=== PATIENT | male | born 1950 | race Caucasian/White ===

== ENCOUNTER 2023-01-19 06:51 | Observation (INO) ==
--- NOTE | 2023-01-08 13:10 | Anesthesiology Consultation ---
Date of Service January 08, 2023 Assessment & Plan (1) Encounter for pre-operative examination: - COVID screening: Per assessment on 01/08: No known COVID-19 positive contacts or current COVID-19 related symptoms. Travel screen negative. Patient vaccinated. At surgeon discretion if preop Covid testing being done. - Cardiology visit (07/23/22): "Dual-chamber pacemaker: I performed a full evaluation of the pacemaker today, which included interrogation of stored data and battery longevity as well as evaluation of sensing and pacing characteristics. Battery longevity remains acceptable, pacing and sensing thresholds are stable and there have been no significant arrhythmias since last evaluation.. Coronary disease: He has documented coronary disease but he does not have anginal symptoms. He should remain on atorvastatin.. Statin therapy: I am going to draw liver tests and a lipid profile as it has been sometime since he had 1.. Valvular heart disease: He has much regurgitation and aortic insufficiency. We will need to follow this by echocardiography. I will schedule him for an echocardiogram prior to his next visit in 1 year.. Hypertension: His blood pressure is excellent today. He is followed remotely therefore I will have him come back in for follow-up in 1 year." Chart Review Chart Review: Acceptable Risk for Surgery (pending evaluation AM DOS) and Patient NOT seen in Pre Admission Testing History Surgery Operation Date: 01/19/23 12:00 Proposed Procedures p TURP (Transurethral Resection of the Prostate) - Jose Elias Scott MD Height/Weight Height: 5 ft 10 in Weight: 90.718 kg Allergies Allergy/AdvReac Type Severity Reaction Status Date / Time cayenne pepper fruits Allergy Severe Throat Verified 01/08/23 13:03 swelling Iodinated Contrast Media Allergy Severe Throat Verified 01/08/23 13:03 swelling erickson Allergy Severe Throat Verified 01/08/23 13:03 swelling animal dander Allergy Intermediate Asthma Verified 01/08/23 13:03 flare lisinopril AdvReac Mild Cough Verified 01/08/23 11:24 Medications Home Medications Medication Instructions Recorded Confirmed Last Taken trospium 20 mg tablet 20 mg PO BID #180 tabs 05/14/22 01/08/23 Unknown albuterol sulfate 90 mcg/actuation 2 puff inhalation QID PRN 07/02/22 01/08/23 Unknown aerosol inhaler shortness of breath or wheezing cholecalciferol (vitamin D3) 50 50 mcg PO HS 07/02/22 01/08/23 Unknown mcg (2,000 unit) capsule dutasteride 0.5 mg capsule 0.5 mg PO QAM 07/02/22 01/08/23 Unknown fluticasone propionate 50 1 spray intranasal QAM 07/02/22 01/08/23 Unknown mcg/actuation nasal spray,suspension levothyroxine 125 mcg tablet 125 mcg PO QAM 07/02/22 01/08/23 Unknown sodium chloride 0.65 % nasal spray 2 spray intranasal QID PRN Nasal 07/02/22 01/08/23 Unknown aerosol (Saline Nasal Mist) Congestion vit C 250 mg-vit E 90 mg-zinc 40 2 tab PO QAM 07/02/22 01/08/23 Unknown mg-copper 1 [id number] capsule (PreserVision AREDS-2) budesonide 180 mcg/actuation 2 inh inhalation BID 10/16/22 01/08/23 Unknown breath activated powder inhaler atorvastatin 20 mg tablet 20 mg PO HS 01/08/23 01/08/23 Unknown calcium carbonate 600 mg calcium 600 mg PO HS 01/08/23 01/08/23 Unknown (1,500 mg) tablet (Calcium) finasteride 5 mg tablet 5 mg PO HS 01/08/23 01/08/23 Unknown metoprolol succinate 25 mg 25 mg PO QAM 01/08/23 01/08/23 Unknown tablet,extended release 24 hr tamsulosin 0.4 mg capsule 0.4 mg PO QAM 01/08/23 01/08/23 Unknown Past Medical History Medical History Asthma Basal cell carcinoma of face BPH with obstruction/lower urinary tract symptoms CAD (coronary artery disease) Glaucoma History of COVID-19 09/2021--mild symptoms > resolved History of renal stone Hypertension Hypothyroidism Osteoarthritis Osteopenia Pacemaker [employer], implanted 2013 Past Family History Family History Mother Cardiac disorder Hypertension Father Cardiac disorder Nephrolithiasis Daughter Neuroblastoma Other No family history of adverse response to anesthesia Past Surgical History Surgical History History of bilateral cataract extraction History of colonoscopy History of Mohs micrographic surgery for skin cancer History of permanent cardiac pacemaker placement 2013 History of prostate biopsy History of surgical removal of pilonidal cyst History of tonsillectomy History of tooth extraction partial upper denture S/P thyroid biopsy Social History Smoking Status: Never smoker Do You Dip or Chew Tobacco: No Hx Alcohol Use: Yes alcohol intake frequency: a few times a month Hx Substance Use: No substance use type: does not use Lab Results Anesthesia Preop Results Results Anesthesia Widget: WBC 8.55 K/ul (4.8-10.8) 01/04/23 Hgb 14.2 g/dl (14.0-18.0) 01/04/23 Hct 41.8 % (42.0-52.0) L 01/04/23 Plt 177 K/uL (130-400) 01/04/23 Na 142 mmol/L (136-145) 01/04/23 K 3.7 mmol/L (3.5-5.1) 01/04/23 Cl 109 mmol/L (98-107) H 01/04/23 CO2 27 mmol/L (21-32) 01/04/23 BUN 18 mg/dl (6-23) 01/04/23 Creat 1.20 mg/dl (0.6-1.4) 01/04/23 Glucose Level 76 mg/dl (70-99(Fasting)) 01/04/23 Testing Electrocardiogram Date: 07/23/22 Sinus rhythm with occasional PVCs at 74 bpm. LAD. Chest X-Ray Date: 01/04/23 FINDINGS: Cardiomediastinal and hilar silhouettes are within normal limits. Left subclavian pacer. No pneumothorax, pleural effusion, airspace consolidation or pulmonary edema. Bones appear grossly intact. IMPRESSION: No acute process. Echocardiogram Date: 11/08/20 EF 50-55%. Normal contractility of the wall segments. MV thickening with mitral annular calcification. Mild to moderate MR. Mild to moderate AR. Mild TR. Mild CO. Pacer leads in right atrium and ventricle. Other Testing Pacer check (07/23/22) Mode AAIR <=> DDDR. Battery longevity 2.5 years. Total PARTNER MANAGEMENT CONSULTANT 0.1%. -VS 80.1%. -PARTNER MANAGEMENT CONSULTANT <0.1%. AP-VS 19.8%. AP-PARTNER MANAGEMENT CONSULTANT <0.1%.
[~2023-01-19 06:51] MED LIST: CIPROFLOXACIN / D5W 400 MG/200 ML BAG IV SCH; LACTATED RINGER'S 1,000 ML IV SCH
--- NOTE | 2023-01-19 07:28 | History & Physical Bridge Note ---
Date of Service January 19, 2023 History & Physical Bridge Note I have examined the patient, reviewed the History & Physical and in the interval since the performance of the History & Physical I have noted the following changes of clinical significance: no changes noted
[2023-01-19] MEDS ORDERED: PROPOFOL IV EMULSION 10 MG/ML 20 ML VIAL IV ONE (08:07)
[2023-01-19] MEDS ORDERED: MIDAZOLAM HCL 1 MG/ML 2ML VIAL ONE (08:07)
[2023-01-19] MEDS ORDERED: fentaNYL citrate PF 100 MCG/2 ML VIAL ONE (08:07)
[2023-01-19] MEDS ORDERED: ONDANSETRON INJ 2 MG/ML 2 ML VIAL ONE (08:07)
[2023-01-19] MEDS ORDERED: DEXAMETHASONE SOD INJ 4 MG/ML VIAL ONE (08:07)
[2023-01-19] MEDS ORDERED: fentaNYL citrate PF 100 MCG/2 ML VIAL IV PRN (08:17)
[2023-01-19] MEDS ORDERED: ONDANSETRON INJ 2 MG/ML 2 ML VIAL IV PRN (08:17)
[2023-01-19] MEDS ORDERED: ATROPINE SULFATE 0.1 MG/ML 10ML SYR IV PRN (08:17)
[2023-01-19] MEDS ORDERED: HYDROmorphone INJ 1 MG/ML SYRINGE IV PRN (08:17)
[2023-01-19] MEDS ORDERED: ePHEDrine sulfate 50 MG/ML AMP IV PRN (08:17)
[2023-01-19] MEDS ORDERED: LIDOCAINE 2% MPF LOCAL 5 ML VIAL ONE (08:28)
[2023-01-19] MEDS ORDERED: PHENYLEPHRINE HCL 10 MG/ML VIAL ONE (09:09)
--- NOTE | 2023-01-19 09:46 | Operative Report ---
PG Post Operative Report Pre & Post Diagnosis Operation Date: 01/19/23 08:20 Pre-Op Diagnosis: Benign Prostatic Hyperplasia with Obstruction/Lower Urinary Tract Symptoms Post-Op Diagnosis: Benign Prostatic Hyperplasia with Obstruction/Lower Urinary Tract Symptoms I identified the patient and participated in the time-out.: Yes Procedure Operation Date: 01/19/23 08:20 Actual Procedures p Transurethral Resection of the Prostate(Not Applicable) - Jose Elias Scott MD Surgeon Jose Elias Scott MD Caption Writer none Estimated Blood Loss 5 Findings Consistent with Post-Op Diagnosis Specimens Prostate chips Description of Procedure The patient was identified in the preoperative holding area, appropriate informed consents were reviewed and completed and the patient was transferred to the operative suite. Upon arrival, appropriate antibiotics and anesthesia were administered and the patient was placed in dorsal lithotomy position and prepped and draped in sterile fashion. Given his past 27 Colombian resectoscope with 33 months visual after repair inspection revealed a healthy-appearing urethra. And a moderately tight meatus was able to gently dilate this for passage of the scope. There were no strictures the remainder of the urethra, his prostate is moderately enlarged with substantial lateral lobe hypertrophy but most importantly has substantial intravesical median lobe. His bladder is healthy with moderate trabeculation. Ureteral orifices were identified in a safe distance from the bladder neck. Begin the case I used a loop electrode and incised the bladder neck at 5 and 7:00 and resected the intravesical median lobe. After flattening the posterior aspect of the bladder neck proceeded to resect the left lateral lobe followed by the right lateral lobe. I ultimately resected apical tissue as well for smoothing the entire prostate utilizing a button electrode. All chips were evacuated out of the bladder. Hemostasis was meticulously obtained and the case was concluded. He was reversed of anesthesia and taken the recovery room in stable condition after placement of a 22 [place]ian [place] catheter. I attest to the content of the Intraoperative Record and any orders documented therein. Any exceptions are noted below.
--- NOTE | 2023-01-19 10:51 | Anesthesiology Progress Note ---
Date of Service January 19, 2023 Anesthesia Post Procedure Vital Signs Vital Signs: Temp Pulse Pulse Resp BP Pulse Ox O2 Del Method 01/19/23 10:25 36.8 C 64 16 123/80 96 Nasal Cannula 01/19/23 10:15 72 18 127/81 95 Nasal Cannula 01/19/23 10:05 75 18 121/86 95 Oxymask 01/19/23 09:55 36.9 C 80 15 136/87 93 Oxymask 01/19/23 09:45 36.9 C 72 16 110/68 93 Oxymask 01/19/23 07:34 36.9 C 78 18 155/90 H 96 Room Air O2 Flow Rate 01/19/23 10:25 4 01/19/23 10:15 4 01/19/23 10:05 8 01/19/23 09:55 8 01/19/23 09:45 8 01/19/23 07:34 Pain Intensity Bilateral Scrotal: Pain Intensity: 0 Transfer of Care Handoff Completed per policy Notes Mental Status: alert / awake / arousable and participated in evaluation Patient Amnestic to Procedure: Yes Nausea / Vomiting: adequately controlled Pain: adequately controlled Airway Patency, RR, SpO2: stable & adequate BP & HR: stable & adequate Hydration State: stable & adequate Anesthetic Complications: no major complications apparent and Pt Satisfied with anesthetic care
[2023-01-19] MEDS ORDERED: ACETAMINOPHEN 325 MG TAB PO PRN (10:54)
[2023-01-19] MEDS ORDERED: ALBUTEROL HFA 8 GM INHALER INH PRN (10:54)
[2023-01-19] MEDS: SODIUM CHLORIDE 0.9% 1000ML 1,000 ML IV SCH ×2 (11:58→23:58)
[2023-01-19] MEDS: FLUTICASONE FUROATE 100MCG 14 PUFFS/INHALER INH SCH (12:44)
[2023-01-19] MEDS ORDERED: LEVOTHYROXINE SODIUM 125 MCG TABLET PO ONE (14:01)
[2023-01-19] MEDS ORDERED: METOPROLOL SUCC 25MG EXT REL TAB PO ONE (14:02)
[2023-01-19] MEDS: CIPROFLOXACIN / D5W 400 MG/200 ML BAG IV SCH (20:20)
[2023-01-19] MEDS ORDERED: CALCIUM CARBONATE 1250MG TAB PO SCH (21:00)
[2023-01-19] MEDS ORDERED: CHOLECALCIFEROL 1,000 UNITS 25 MCG TAB PO SCH (21:00)
[2023-01-19] MEDS ORDERED: ATORVASTATIN 20 MG TAB PO SCH (21:00)
[2023-01-20] MEDS ORDERED: LEVOTHYROXINE SODIUM 125 MCG TABLET PO SCH (06:30)
[2023-01-20 06:42] LABS: Hemoglobin 13.8 g/dl (14.0-18.0); Mean Corpuscular Hemoglobin 32.6 pg (25.0-34.0); Mean Corpuscular Hgb Conc 35.4 g/dL (32.0-36.0); Mean Corpuscular Volume 92.2 fL (80.0-100.0); Mean Platelet Volume 10.7 fL (9.4-12.4); Platelet Count 192 K/uL (130-400); RDW Coefficient of Variation 12.9 % (11.5-14.5); RDW Standard Deviation 43.4 fL (36.4-46.3); Red Blood Count 4.23 M/uL (4.70-6.10); White Blood Count 16.43 K/ul (4.8-10.8)
[2023-01-20 06:57] LABS: BUN Creatinine Ratio 19.2 (10-20); Calcium 8.9 mg/dl (8.6-10.3); Creatinine Clr Calc Pharmacy 64.4 ml/min; Est GFR (African American) 70.1 ml/min; Est GFR (Non-African American) 60.5 ml/min; Potassium 4.2 mmol/L (3.5-5.1)
[2023-01-20] MEDS: CIPROFLOXACIN / D5W 400 MG/200 ML BAG IV SCH (07:45)
[2023-01-20] MEDS: FLUTICASONE FUROATE 100MCG 14 PUFFS/INHALER INH SCH (07:46)
--- NOTE | 2023-01-20 08:27 | Urology Progress Note ---
Date of Service January 20, 2023 Assessment & Plan (1) BPH with obstruction/lower urinary tract symptoms: Plan: Voiding trial this morning Discharge home Admission and Anticipated Discharge Date Admission Date: January 19, 2023 Subjective No issues overnight Urine clear Anxious to go home Physical Exam Physical Exam: Urine clear -abdomen soft Results & Data Vital Signs (Past 12 Hours) Vital Signs Temp Pulse Resp BP Pulse Ox O2 Del Method 01/20/23 07:28 36.8 C 69 16 124/76 94 Room Air 01/20/23 03:00 36.8 C 72 18 130/77 95 Room Air 01/19/23 23:00 36.9 C 58 L 18 113/68 94 Room Air PG Care Time/CCT Total # of Minutes Spent Total Time Spent with Patient: Total time spent is greater than 50% in coordination of care (as documented) at patient's floor/unit and/or counseling patient: Coding Level of Care Code None Diagnoses BPH with obstruction/lower urinary tract symptoms N40.1; N13.8
[2023-01-20] MEDS ORDERED: METOPROLOL SUCC 25MG EXT REL TAB PO SCH (09:00)
--- NOTE | 2023-01-20 17:03 | Discharge Summary ---
Date of Service January 20, 2023 Admission HPI Per Admitting Provider 72-year-old male with chronic voiding dysfunction and BPH presents for transurethral resection of the prostate Admission Exam Per Admitting Provider Constitutional well developed and well nourished Neck neck nontender Respiratory normal respiratory effort; no respiratory distress and does not use accessory muscles Cardiovascular Rate/Rhythm: regular rate (paced) Vessels: radial pulses present Extremities: no edema Gastrointestinal (Abdomen) Inspection/Auscultation: abdomen normal to inspection Percussion/Palpation: abdomen soft; abdomen nontender and no guarding Musculoskeletal Head/Neck/Chest: normocephalic and head atraumatic Extremities: extremities normal to inspection Skin no rashes and no lesions Trauma: no evidence of skin trauma Neurologic awake; not obtunded Speech / Cognition: normal speech Motor/Sensory: no tremor Psychiatric Orientation: alert and oriented x 3 Genitourinary no CVA tenderness Lymphatic no lymphadenopathy Principal Diagnosis BPH with urinary obstruction and LUTS Discharge Exam Constitutional no acute distress Respiratory no respiratory distress and no labored breathing Neurologic moves all extremities and awake Psychiatric Orientation: alert, oriented x 3 and cooperative Genitourinary Urine is light pink Discharge Data Allergies Allergy/AdvReac Type Severity Reaction Status Date / Time cayenne pepper fruits Allergy Severe Throat Verified 01/19/23 07:26 swelling Iodinated Contrast Media Allergy Severe Throat Verified 01/19/23 07:26 swelling erickson Allergy Severe Throat Verified 01/19/23 07:26 swelling animal dander Allergy Intermediate Asthma Verified 01/19/23 07:26 flare lisinopril AdvReac Mild Cough Verified 01/19/23 07:26 Procedures Performed Operation Date: 01/19/23 08:20 Actual Procedures p Transurethral Resection of the Prostate(Not Applicable) - Jose Elias Scott MD Hospital Course (1) BPH with obstruction/lower urinary tract symptoms: Plan 72-year-old male with BPH with urinary obstruction and LUTS admitted status post transurethral resection of the prostate. Patient tolerated procedure well, no acute issues postoperatively. Remained afebrile and hemodynamically stable. Labs appropriate. He passed a voiding trial on postop day #1. No reported pain. Tolerated diet. Ambulated without issue. Patient was subsequently discharged home on postop day #1. He was in stable condition at time of discharge. Discharge instructions were reviewed, all questions were answered. Total Time Total Time Spent Total Time Spent (In Minutes): 15 Discharge Plan Discharge Items Patient Disposition: Home - Self-Care Reason For Visit: Benign Prostatic Hyperplasia with Obstruction/Lowe Discharge Diagnosis: BPH with urinary obstruction and lower urinary tract symptoms Condition on Discharge: Good Activity: Per Instructions section Non-emergency contact: Surgeon and Urologist Call non-emergency contact if: you have any medication questions, your pain is not controlled, your pain is worsening and you have a fever Follow-up/Referrals: Leonel Torres MD [Physician] - 05/18/23 2:40 pm Lit Scales [Primary Care Provider] - Diet: Regular Addtl Attending Provider Instructions: Please take all medications as prescribed and keep all follow-ups as scheduled. Please call our office at [phone] with any questions, concerns or need to reschedule appointments for any reason. We are happy to assist you. Tips for your recovery at home: Dont be alarmed by brownish or reddish blood or clots in your urine. This is a result of the procedure. This may occur off and on for weeks to months after the procedure but should continue to improve. Drink plenty of fluids during the day (enough to keep your urine very light colored). This will help keep a healthy flow of urine. Do not lift >25 lbs until your followup Avoid constipation. Please use a stool softener (Colace) for the first two weeks after your procedure When to call [facility] at [phone]: Your urine contains heavy blood clots or you are unable to urinate You are constantly leaking urine Fever of 101F or higher, chills, nausea, or vomiting Your pain is not relieved with medication Pending Studies at Discharge: Yes (pathology) Stand-Alone Forms: [facility] [place], Smoking Cessation Medications and DC Order Prescriptions: Continued budesonide 180 mcg/actuation aerosol powdr breath activated 2 inh inhalation BID levothyroxine 125 mcg tablet 125 mcg PO QAM albuterol sulfate 90 mcg/actuation HFA aerosol inhaler 2 puff inhalation QID PRN (Reason: shortness of breath or wheezing) cholecalciferol (vitamin D3) 50 mcg (2,000 unit) capsule 50 mcg PO HS fluticasone propionate 50 mcg/actuation spray,suspension 1 spray intranasal QAM Rx Instructions: administer into each nostril Saline Nasal Mist 0.65 % aerosol,spray 2 spray intranasal QID PRN (Reason: Nasal Congestion) PreserVision AREDS-2 250-90-40-1 mg capsule 2 tab PO QAM atorvastatin 20 mg tablet 20 mg PO HS metoprolol succinate 25 mg tablet extended release 24 hr 25 mg PO QAM calcium carbonate [Calcium 600] 600 mg calcium (1,500 mg) Tablet 600 mg PO HS Discontinued trospium 20 mg tablet 20 mg PO BID Qty: 180 3RF Rx Instructions: administer on an empty stomach dutasteride 0.5 mg capsule 0.5 mg PO QAM tamsulosin 0.4 mg capsule 0.4 mg PO QAM finasteride [Proscar] 5 mg tablet 5 mg PO HS Discharge Orders: Discharge Order (Routine); Ordered 01/20/23 Ordered By: Rhoda Lewis Admission Data Admit Date/Time: 01/19/23 09:44 Attending Provider: Jose Elias Scott Admit Provider: Jose Elias Scott Primary Care Provider: Lit Scales Other Interventions: Discharge Summary Assessment (RN) Last Done: 01/20/23 10:21 Coding Level of Care Code 14485 IN/OBS DISCH 30 MIN/LESS Diagnoses BPH with obstruction/lower urinary tract symptoms N40.1; N13.8
== END 2023-01-20 11:35 | disposition home or self-care (01) ==
LOC: 3W 06:51 → ASU 06:51

== ENCOUNTER 2025-03-24 13:23 | Inpatient (IN) ==
[2025-03-24 14:28] LABS: Hematocrit (blood only) 41.5 % (42.0-52.0); Hemoglobin 14.5 g/dl (14.0-18.0); Immature Granulocytes # (auto) 0.04 K/uL (0.01-0.20); Immature Granulocytes % (auto) 0.4 %; Mean Corpuscular Hemoglobin 33.1 pg (25.0-34.0); Mean Corpuscular Volume 94.7 fL (80.0-100.0); Platelet Count 192 K/uL (130-400); RDW Standard Deviation 43.7 fL (36.4-46.3); Red Blood Count 4.38 M/uL (4.70-6.10); White Blood Count 8.97 K/ul (4.8-10.8)
[2025-03-24 14:46] LABS: Alanine Aminotransferase 18.0 U/L (7-52); Albumin Globulin Ratio 1.3 (0.9-2); Alkaline Phosphatase 63.0 U/L (34-104); Anion Gap 6.0 (3-11); Bilirubin,Total 0.5 mg/dl (0.2-1.0); Blood Urea Nitrogen 22.0 mg/dl (6-23); Calcium 8.9 mg/dl (8.6-10.3); Carbon Dioxide 26.0 mmol/L (21-32); Chloride 109.0 mmol/L (98-107); Creatinine Clr Calc Pharmacy 60.1 ml/min; Globulin 3.1 gm/dl (2.5-4.0); Glucose 102.0 mg/dl (70-99(Fasting)); Potassium 4.0 mmol/L (3.5-5.1); Sodium 141.0 mmol/L (136-145); Total Protein 7.0 gm/dl (6.0-8.3)
[2025-03-24 14:59] LABS: INR 1.0 (0.9-1.1); Partial Thromboplastin Time 26 Seconds (21-31); Prothrombin Time 10.6 Seconds (9.0-12.0)
--- NOTE | 2025-03-24 15:08 | XRay Report ---
Clinical History: Chest pain Technique: A frontal view of the chest was obtained Comparison is made to the prior examination dated 01/04/2023 Findings: There are no confluent pulmonary infiltrates. The heart size is within normal limits. No pleural effusion or pneumothorax is seen. There is mild bilateral lung base atelectasis No fracture is noted. There is a left chest wall pacemaker device Impression: Mild bilateral lung base atelectasis Electronically signed by Tad Kate 03-24-2025 3:08 PM
--- NOTE | 2025-03-24 16:01 | Emergency Department Note ---
Impression & Plan Near syncope, Lightheadedness ED Provider Note HISTORY OF PRESENT ILLNESS: Patient is a 75-year-old male presenting with lightheadedness and dizziness. Patient reports that for the last week he has been having recurrent episodes of feeling very lightheaded and dizzy like he is going to pass out. He denies any significant chest pain. He reports feeling short of breath. He denies ever actually blacking out, but states he has had recurrent episodes in which he feels like he is going to pass out and is concerned his pacemaker might not be working. He had a pacemaker placed in December 2013 after having episodes of syncope. Patient denies any abdominal pain, nausea or vomiting. Denies any recent changes in medications. Denies any fevers. He reports he had another episode today in which she got very lightheaded and was stumbling around and he thought he was going to pass out, prompting his family to bring him to the ER. Patient reports that he has been having more frequent episodes of the lightheadedness and dizziness that caused him to lose his balance over the last 2 weeks. Patient denies any specific triggers for his episodes of dizziness and lightheadedness. He reports that it can occur when he is changing position, but can also occur suddenly when he is up and already walking. ROS: as above PHYSICAL EXAM: Constitutional: Patient appears in no acute distress. HENT: Head: Normocephalic and atraumatic. Eyes: EOMI, PERRL Mouth/Throat: Mucous membranes moist. Neck: Trachea midline. Neck supple. Cardiovascular: Paced rhythm. No murmurs, rubs or gallops. Intact distal pulses. Pulmonary/Chest: No respiratory distress. Breath sounds clear and equal bilaterally. No wheezes or rales. Abdominal: Abdomen soft, no tenderness, rebound or guarding. Musculoskeletal: No edema, tenderness or deformity noted. Skin: Warm and dry. No rash, erythema, pallor or cyanosis Psychiatric: Appropriate mood and affect for situation. Neurological: Alert and keenly responsive. CN II-XII grossly intact, moving all extremities equally and fully. Patient MDM: - Vitals signs stable. - History obtained via patient. History as above. - Chronic conditions affecting care: CAD; pacemaker; hypothyroidism; valvular heart disease; paroxysmal Afib - Differential diagnoses include, but are not limited to: Dysrhythmia; ACS; electrolyte abnormality; pneumonia; CVA; intracranial hemorrhage - Order placed for continuous cardiac monitoring. At this time, monitor showed rate of 70 bpm with paced rhythm, per my interpretation. - External medical records reviewed. Cardiology electrophysiology office visit note date 08/14/2024 was reviewed. Patient was seen for interrogation of his pacemaker. He has a history of CAD and valvular heart disease. - EKG image interpreted by myself showed paced rhythm. Rate 86 bpm. QT 364. No acute ischemic changes. - Laboratory workup interpreted by myself showed normal WBC; normal PT/INR; stable electrolytes; normal troponin - CXR image reviewed myself is negative for pneumonia, for my interpretation. - CT head wo contrast negative for acute intracranial pathology - Repeat troponin within normal limits - Orthostatic vital signs within normal limits - Pacemaker was interrogated at bedside. [employer] loop send the read. It notes that he had a 4 beat round of V. tach that has occurred 13 times since 14 August 2024. - Discussed results with the patient and family at bedside. Concern for potential dysrhythmia as a source for the patient's symptoms. The concern is that these symptoms are occurring more frequently over the last 2 weeks, with today's episodes being significant enough to bring him to the emergency department. Will admit to hospital service for further evaluation management and evaluation by cardiology in the inpatient setting. - Discussion was had with outpatient case manager about patient's case and need for admission - Hospitalist, Dr. Tucker, consulted for admission - [facility] ASSESSMENT AND PLAN: Diagnosis: Near syncope; lightheadedness Plan: Admit Past Med/Surg History Problem List (Updated 03/24/25 @ 19:11 by Tova Greco MD) Lightheadedness (Acute) Near syncope (Acute) Paroxysmal atrial fibrillation Hypothyroidism Hypokalemia (Acute) Syncope (Acute) Urinary incontinence (Acute) Renal atrophy, left (Acute) Nocturia (Acute) Nephrolithiasis (Acute) Impotence, organic (Acute) Cardiac pacemaker Valvular heart disease On statin therapy Urethral stone Hypertension (Chronic) Glaucoma CAD (coronary artery disease) follows with Dr. Baird no obstructive CAD per 2013 cardiac cath per cardio records Pacemaker [employer], implanted 2013 Asthma BPH with obstruction/lower urinary tract symptoms Medical History Basal cell carcinoma of face History of COVID-19 History of renal stone Osteopenia Surgical History History of transurethral resection of prostate History of cardiac catheterization S/P thyroid biopsy History of Mohs micrographic surgery for skin cancer History of surgical removal of pilonidal cyst History of prostate biopsy History of colonoscopy History of tooth extraction History of tonsillectomy History of bilateral cataract extraction History of permanent cardiac pacemaker placement Family History Mother Cardiac disorder Hypertension Father Cardiac disorder Nephrolithiasis Daughter Neuroblastoma Other No family history of adverse response to anesthesia Social History (Updated 11/30/24 @ 10:03 by LEO Brandt) Smoking Status: Never smoker Second Hand Exposure: No; Do You Dip or Chew Tobacco: No; Hx Alcohol Use: Yes Alcohol type: beer, wine and hard liquor Alcohol Intake Frequency: Monthly or Less Hx Substance Use: No Preferred Language: Martiniquais Communication Ability: Effective Visual Impairment: No Limitations Instruction Assistant Principal Required: No Beliefs That Will Affect Care: None marital status: Current Living Situation: Spouse current occupational status: retired How many Children do You have: 2 Feels Safe at Home: Yes Childhood Exposure to Second-Hand Smoke: Yes Diet: regular caffeine: Yes Dental Care, Regularly: Yes Physical Activity Frequency: 3-4 Times per Week Seatbelt Use: always Sunscreen Use: Yes Assistive Devices: None Allergies Allergies Allergy/AdvReac Type Severity Reaction Status Date / Time cat dander Allergy Severe Verified 11/30/24 10:00 cayenne pepper fruits Allergy Severe Throat Verified 11/30/24 10:00 swelling Iodinated Contrast Media Allergy Severe Throat Verified 11/30/24 10:00 swelling erickson Allergy Severe Throat Verified 11/30/24 10:00 swelling animal dander Allergy Intermediate Asthma Verified 11/30/24 10:00 flare lisinopril AdvReac Mild Cough Verified 11/30/24 10:00 Home Meds Home Medications Medication Instructions Recorded Confirmed albuterol sulfate 90 mcg/actuation 2 puff inhalation QID PRN 07/02/22 03/24/25 aerosol inhaler shortness of breath or wheezing cholecalciferol (vitamin D3) 50 50 mcg PO HS 07/02/22 03/24/25 mcg (2,000 unit) capsule fluticasone propionate 50 1 spray intranasal QAM 07/02/22 03/24/25 mcg/actuation nasal spray,suspension levothyroxine 125 mcg tablet 125 mcg PO QAM 07/02/22 03/24/25 sodium chloride 0.65 % nasal spray 2 spray intranasal QID PRN Nasal 07/02/22 03/24/25 aerosol (Saline Nasal Mist) Congestion vit C 250 mg-vit E 90 mg-zinc 40 2 tab PO QAM 07/02/22 03/24/25 mg-copper 1 [id number] capsule (PreserVision AREDS-2) calcium carbonate (Calcium 600) 600 mg PO HS 01/08/23 03/24/25 mometasone 200 mcg/actuation HFA 0 puff inhalation BID 08/14/24 03/24/25 aerosol inhaler (Asmanex HFA) Previous Rx's Medication Instructions Recorded atorvastatin 20 mg tablet 20 mg PO HS #90 tabs 11/11/23 metoprolol succinate 25 mg 25 mg PO QAM #90 tabs 02/25/24 tablet,extended release 24 hr vibegron 75 mg tablet (Gemtesa) 75 mg PO DAILY #90 tabs 04/18/24 ipratropium bromide 21 mcg (0.03 2 spray intranasal BID #30 mL 11/30/24 %) nasal spray Results & Data (ED) Vital Signs Vital Signs - 24 hr 03/24/25 13:33 03/24/25 13:38 03/24/25 14:22 Temperature 36.9 C Temperature Source Temporal Artery Scan Pulse Rate - Lying Pulse Rate - Sitting Pulse Rate - Standing Pulse Rate 78 66 Pulse Rate [Apical] Pulse Rate from SpO2 Sensor Respiratory Rate 16 Respiratory Effort / Characteristics Non-Labored Accessory Muscle Use Short of Breath SOB on Exertion Respiratory Depth Normal Respiratory Pattern Regular Blood Pressure - Lying Blood Pressure - Sitting Blood Pressure- Standing Blood Pressure 135/76 Blood Pressure [Left Arm] Blood Pressure Mean 95 Blood Pressure Mean [Left Arm] Pulse Oximetry 95 Oxygen Delivery Method Room Air Sepsis Recent Fever Within 48 Hours No Sepsis New/Unexplained Change in Mental Status No Sepsis Action Taken by Nursing No Action Required 03/24/25 15:22 03/24/25 16:06 03/24/25 17:15 Temperature Temperature Source Pulse Rate - Lying 63 Pulse Rate - Sitting 74 Pulse Rate - Standing 76 Pulse Rate Pulse Rate [Apical] 65 61 Pulse Rate from SpO2 Sensor Respiratory Rate 18 16 Respiratory Effort / Characteristics Respiratory Depth Respiratory Pattern Blood Pressure - Lying 135/75 Blood Pressure - Sitting 135/87 Blood Pressure- Standing 133/87 Blood Pressure Blood Pressure [Left Arm] 122/73 140/87 Blood Pressure Mean Blood Pressure Mean [Left Arm] 89 104 Pulse Oximetry 92 96 Oxygen Delivery Method Room Air Sepsis Recent Fever Within 48 Hours Sepsis New/Unexplained Change in Mental Status Sepsis Action Taken by Nursing 03/24/25 17:30 03/24/25 17:42 03/24/25 18:00 Temperature Temperature Source Pulse Rate - Lying Pulse Rate - Sitting Pulse Rate - Standing Pulse Rate 61 61 65 Pulse Rate [Apical] Pulse Rate from SpO2 Sensor 61 65 Respiratory Rate 20 22 Respiratory Effort / Characteristics Respiratory Depth Respiratory Pattern Blood Pressure - Lying Blood Pressure - Sitting Blood Pressure- Standing Blood Pressure Blood Pressure [Left Arm] Blood Pressure Mean Blood Pressure Mean [Left Arm] Pulse Oximetry 95 94 Oxygen Delivery Method Room Air Room Air Sepsis Recent Fever Within 48 Hours Sepsis New/Unexplained Change in Mental Status Sepsis Action Taken by Nursing 03/24/25 18:00 03/24/25 18:30 03/24/25 19:00 Temperature Temperature Source Pulse Rate - Lying Pulse Rate - Sitting Pulse Rate - Standing Pulse Rate 62 Pulse Rate [Apical] 69 Pulse Rate from SpO2 Sensor 62 Respiratory Rate 25 H 20 Respiratory Effort / Characteristics Non-Labored Spontaneous Respiratory Depth Normal Respiratory Pattern Blood Pressure - Lying Blood Pressure - Sitting Blood Pressure- Standing Blood Pressure 119/72 Blood Pressure [Left Arm] 168/99 H Blood Pressure Mean 89 Blood Pressure Mean [Left Arm] 122 Pulse Oximetry 96 98 Oxygen Delivery Method Room Air Room Air Sepsis Recent Fever Within 48 Hours Sepsis New/Unexplained Change in Mental Status Sepsis Action Taken by Nursing Laboratory Data 03/24/25 13:52 03/24/25 13:52 Lab Results 03/24/25 03/24/25 Range/Units 13:52 17:45 WBC 8.97 (4.8-10.8) K/ul RBC 4.38 L (4.70-6.10) M/uL Hgb 14.5 (14.0-18.0) g/dl Hct 41.5 L (42.0-52.0) % MCV 94.7 (80.0-100.0) fL MCH 33.1 (25.0-34.0) pg MCHC 34.9 (32.0-36.0) g/dL RDW Std Deviation 43.7 (36.4-46.3) fL RDW Coeff of Alli 12.6 (11.5-14.5) % Plt Count 192 (130-400) K/uL MPV 10.2 (9.4-12.4) fL Immature Gran % (Auto) 0.4 % Neut % (Auto) 59.4 % Lymph % (Auto) 20.3 % [place] % (Auto) 14.4 % Eos % (Auto) 4.5 % Baso % (Auto) 1.0 % Neut # (Auto) 5.33 (1.40-6.50) K/uL Lymph # (Auto) 1.82 (1.20-3.40) K/uL [place] # (Auto) 1.29 H (0.11-0.59) K/uL Eos # (Auto) 0.40 (0.00-0.50) K/uL Baso # (Auto) 0.09 (0.00-0.20) K/uL Immature Gran # (Auto) 0.04 (0.01-0.20) K/uL PT 10.6 (9.0-12.0) Seconds INR 1.0 (0.9-1.1) APTT 26 (21-31) Seconds PTT Ratio 1.0 Sodium 141 (136-145) mmol/L Potassium 4.0 (3.5-5.1) mmol/L Chloride 109 H (98-107) mmol/L Carbon Dioxide 26 (21-32) mmol/L Anion Gap 6 (3-11) BUN 22 (6-23) mg/dl Creatinine 1.21 (0.6-1.4) mg/dl Est Cr Clr Drug Dosing 60.1 ml/min eGFR 62.83 BUN/Creatinine Ratio 18.2 (10-20) Glucose 102 H (70-99(Fasting)) mg/dl Calcium 8.9 (8.6-10.3) mg/dl Total Bilirubin 0.5 (0.2-1.0) mg/dl AST 21 (13-39) U/L ALT 18 (7-52) U/L Alkaline Phosphatase 63 (34-104) U/L Troponin I High Sens 4.1 4.3 (0-20) pg/ml Total Protein 7.0 (6.0-8.3) gm/dl Albumin 3.9 (3.4-5.0) gm/dl Globulin 3.1 (2.5-4.0) gm/dl Albumin/Globulin Ratio 1.3 (0.9-2) Imaging Data Radiologist's Impression: Chest X-Ray 03/24/25 14:10 Clinical History: Chest pain Technique: A frontal view of the chest was obtained Comparison is made to the prior examination dated 01/04/2023 Findings: There are no confluent pulmonary infiltrates. The heart size is within normal limits. No pleural effusion or pneumothorax is seen. There is mild bilateral lung base atelectasis No fracture is noted. There is a left chest wall pacemaker device Impression: Mild bilateral lung base atelectasis Electronically signed by Tad Kate 03-24-2025 3:[address] 03/24/25 16:53 EXAM: CT head/brain wo con CLINICAL HISTORY: Dizziness TECHNIQUE: Axial non-contrast CT scan of the brain was performed from the skull base to the high parietal region. One of the following dose reduction techniques were utilized for this exam: Automated exposure control, adjustment of the mA and/or kV according to patient size, use of iterative reconstruction. COMPARISON: None FINDINGS: Brain Parenchyma: Bilateral cerebral small subcortical and deep periventricular white matter foci of low density with mild periventricular hypodensities capping both lateral ventricles. Normal attenuation of the cerebellum and brainstem. No evidence of acute infarct, hemorrhage, or mass effect. Bilateral basal ganglia, tiny calcifications. Ventricular System: Prominent ventricular systems, extra-axial CSF spaces and basal cisterns. No evidence of hydrocephalus or ventricular enlargement. Subarachnoid Spaces: Normal sulci and cisterns. No evidence of subarachnoid hemorrhage or extra-axial fluid collections. Cerebellum and Brainstem: No masses, lesions, or areas of abnormal density. Orbits: Normal appearance of the globes, optic nerves, and extraocular muscles. No evidence of orbital masses or abnormal density. Sinuses: Clear paranasal sinuses. No evidence of sinusitis or mucosal thickening. Mastoid Air Cells: Clear mastoid air cells. No evidence of mastoiditis. Skull: Normal skull morphology. Other findings: Atherosclerotic calcifications of the cavernous segments of the internal carotid arteries, with an ectatic right supraclinoid segment. Falx calcifcations. IMPRESSION: 1. No acute intracranial hemorrhage or territorial infarctions. 2. Chronic microvascular ischemic changes. 3. Age-related brain atrophic changes. 4. Early changes of a stroke may not be detected on a CT scan. If there is strong clinical suspicion of stroke, further MRI with diffusion-weighted imaging is recommended. Electronically signed by Charli Donato 03-24-2025 6:28 PM Discharge Plan Visit Data Chief Complaint: Cardiac Assessment Stated Complaint: CHEST DISCOMFORT,DIZZINESS,NAUSEA ED Provider: Tova Greco Discharge Problem: Near syncope, Lightheadedness Condition: Fair Forms Stand Alone Forms: [facility] Prescriptions Prescriptions: No Action atorvastatin 20 mg tablet 20 mg PO HS Qty: 90 3RF metoprolol succinate 25 mg tablet extended release 24 hr 25 mg PO QAM Qty: 90 3RF Gemtesa 75 mg tablet 75 mg PO DAILY Qty: 90 3RF Asmanex HFA 200 mcg/actuation HFA aerosol inhaler 0 puff inhalation BID Patient Comments: 03/24- family unsure if this is the correct inhaler he uses more often. Original:2 puff inhalation BID levothyroxine 125 mcg tablet 125 mcg PO QAM albuterol sulfate 90 mcg/actuation HFA aerosol inhaler 2 puff inhalation QID PRN (Reason: shortness of breath or wheezing) cholecalciferol (vitamin D3) 50 mcg (2,000 unit) capsule 50 mcg PO HS fluticasone propionate 50 mcg/actuation spray,suspension 1 spray intranasal QAM Rx Instructions: administer into each nostril Saline Nasal Mist 0.65 % aerosol,spray 2 spray intranasal QID PRN (Reason: Nasal Congestion) PreserVision AREDS-2 250-90-40-1 mg capsule 2 tab PO QAM ipratropium bromide 21 mcg (0.03 %) spray,non-aerosol 2 spray intranasal BID Qty: 30 2RF Rx Instructions: administer into each nostril calcium carbonate [Calcium 600] 600 mg calcium (1,500 mg) Tablet 600 mg PO HS Referrals Referrals: Eliseo Garcia, [Primary Care Provider] -
--- NOTE | 2025-03-24 18:28 | CT Scan Report ---
EXAM: CT head/brain wo con CLINICAL HISTORY: Dizziness TECHNIQUE: Axial non-contrast CT scan of the brain was performed from the skull base to the high parietal region. One of the following dose reduction techniques were utilized for this exam: Automated exposure control, adjustment of the mA and/or kV according to patient size, use of iterative reconstruction. COMPARISON: None FINDINGS: Brain Parenchyma: Bilateral cerebral small subcortical and deep periventricular white matter foci of low density with mild periventricular hypodensities capping both lateral ventricles. Normal attenuation of the cerebellum and brainstem. No evidence of acute infarct, hemorrhage, or mass effect. Bilateral basal ganglia, tiny calcifications. Ventricular System: Prominent ventricular systems, extra-axial CSF spaces and basal cisterns. No evidence of hydrocephalus or ventricular enlargement. Subarachnoid Spaces: Normal sulci and cisterns. No evidence of subarachnoid hemorrhage or extra-axial fluid collections. Cerebellum and Brainstem: No masses, lesions, or areas of abnormal density. Orbits: Normal appearance of the globes, optic nerves, and extraocular muscles. No evidence of orbital masses or abnormal density. Sinuses: Clear paranasal sinuses. No evidence of sinusitis or mucosal thickening. Mastoid Air Cells: Clear mastoid air cells. No evidence of mastoiditis. Skull: Normal skull morphology. Other findings: Atherosclerotic calcifications of the cavernous segments of the internal carotid arteries, with an ectatic right supraclinoid segment. Falx calcifcations. IMPRESSION: 1. No acute intracranial hemorrhage or territorial infarctions. 2. Chronic microvascular ischemic changes. 3. Age-related brain atrophic changes. 4. Early changes of a stroke may not be detected on a CT scan. If there is strong clinical suspicion of stroke, further MRI with diffusion-weighted imaging is recommended. Electronically signed by Charli Donato 03-24-2025 6:28 PM
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
[2025-03-24 20:04] LABS: Thyroid Stimulating Hormone 1.803 uIu/ml (0.300-4.500)
[2025-03-24 20:17] LABS: Magnesium 2.1 mg/dl (1.7-2.4)
[2025-03-24] MEDS ORDERED: ONDANSETRON INJ 2 MG/ML 2 ML VIAL IV PRN (21:31)
[2025-03-24] MEDS ORDERED: MELATONIN 3 MG TAB PO PRN (21:31)
[2025-03-24] MEDS ORDERED: DOCUSATE SODIUM 100 MG CAP PO PRN (21:31)
[2025-03-24] MEDS ORDERED: ALBUTEROL HFA 8 GM INHALER INH PRN (21:31)
[2025-03-24] MEDS: IPRATROPIUM BROMIDE NASAL SPRAY 0.03% 30 ML SCH (22:17)
[2025-03-24] MEDS: ATORVASTATIN 20 MG TAB PO SCH (22:17)
[2025-03-25 07:09] LABS: Hematocrit (blood only) 40.0 % (42.0-52.0); Hemoglobin 14.0 g/dl (14.0-18.0); Immature Granulocytes # (auto) 0.01 K/uL (0.01-0.20); Immature Granulocytes % (auto) 0.1 %; Mean Corpuscular Hemoglobin 32.9 pg (25.0-34.0); Mean Corpuscular Volume 94.1 fL (80.0-100.0); Platelet Count 206 K/uL (130-400); RDW Standard Deviation 42.8 fL (36.4-46.3); Red Blood Count 4.25 M/uL (4.70-6.10); White Blood Count 7.92 K/ul (4.8-10.8)
[2025-03-25 08:04] LABS: Alanine Aminotransferase 16.0 U/L (7-52); Albumin Globulin Ratio 1.4 (0.9-2); Alkaline Phosphatase 52.0 U/L (34-104); Anion Gap 4.0 (3-11); Bilirubin,Total 0.6 mg/dl (0.2-1.0); Blood Urea Nitrogen 20.0 mg/dl (6-23); Calcium 8.5 mg/dl (8.6-10.3); Carbon Dioxide 27.0 mmol/L (21-32); Chloride 111.0 mmol/L (98-107); Creatinine Clr Calc Pharmacy 64.8 ml/min; Globulin 2.6 gm/dl (2.5-4.0); Glucose 103.0 mg/dl (70-99(Fasting)); Potassium 4.1 mmol/L (3.5-5.1); Sodium 142.0 mmol/L (136-145); Total Protein 6.3 gm/dl (6.0-8.3)
[2025-03-25] MEDS: METOPROLOL SUCC 25MG EXT REL TAB PO SCH (08:19)
[2025-03-25] MEDS: VIBEGRON 75 MG TAB PO SCH (08:19)
[2025-03-25] MEDS: LEVOTHYROXINE SODIUM 125 MCG TABLET PO SCH (08:19)
[2025-03-25] MEDS: FLUTICASONE PROPIONATE NA SPR 16 GM BTL SCH (08:20)
[2025-03-25] MEDS: FLUTICASONE FUROATE 200MCG 14 PUFFS/INHALER INH SCH (08:20)
--- NOTE | 2025-03-25 10:27 | Hospitalist Progress Note ---
Date of Service March 25, 2025 Assessment & Plan (1) Near syncope: (2) Lightheadedness: (3) Pacemaker: (4) Paroxysmal atrial fibrillation: Plan Patient is a 75-year-old male with past medical history of paroxysmal A-fib s/p pacer December 2013, CAD, HTN, asthma, BPH. Patient presented due to numerous presyncopal episodes with falls x 6 months and was concerned about his pacer. Pacer interrogation showed a 4 beat run of V. tach however unclear as to when this occurred. Initial troponin 4.1, trended to 4.3. Diagnostic imaging negative for acute changes. He was admitted for further cardiac workup including echocardiogram and telemetry monitoring. #Presyncope - suspect 2/2 cardiac pacemaker longevity declining. Trop 4.1 ->4.3 --> 4.4. EKG showed atrial paced rhythm. CXR and head CT negative for acute changes. Electrolytes stable. VSS. - Echocardiogram completed, report pending - most recent 07/2024 showed normal systolic function, EF 50 to 55%, mild LVH, sclerotic aortic valve without significant stenosis, mild AR, mild MR - Cardiology consulted - feels this is unlikely to be pacemaker mediated. Continue to monitor on telemetry. Working up other causes - Repeat orthostatic VS were negative - TSH, mag, electrolytes WNL - Will give additional 500 cc IV fluid at 150mL/hr now - Consulted PT/OT and asked for PT to perform vestibular testing to eval for vertigo - Added B12 to AM labs #Paroxysmal A fib/CAD - s/p pacer as above. Continue metoprolol and statin #Asthma - continue home inhalers #BPH - continue vibegron VTE ppx: SCDs, able to ambulate Dispo: Continue to monitor on telemetry. PT/OT evals pending Updated family members at bedside Discussed case with cardiology Consulted PT/OT Ordered IVF Admission and Anticipated Discharge Date Admission Date: March 24, 2025 Supervising Physician Co-Signing Physician Notes Attending Attestation - Chart reviewed, care plan d/w JUSTICE Merino. I agree w/ the meza components of her documentation. Mark Das MD Subjective Patient seen and evaluated at bedside with his , son, and DIL present. He reports feeling well at this time. He describes presyncopal episodes ongoing for about 1 week, though his reports it has been occurring at an intermittent frequency since the winter. He reports lightheadedness with these episodes and "maybe sometimes dizziness, I don't know." We discussed that Dr. Ramsay has a low suspicion this is related to his pacemaker, but he will discuss further with them. I informed him of the further workup we will be doing, including IV fluids, PT/OT evals with vestibular testing, and IV fluids. His orthostatic VS were negative today. He denies shortness of breath, chest pain, palpitations, tremors. All questions/concerns answered to the best of my ability. No additional complaints at this time. Telemetry with paced rhythm in 70-80s with no events overnight or today. Physical Exam Physical Exam: General: No acute distress, nondiaphoretic, well-developed, well-nourished. Skin: Warm, dry. No rashes or peripheral edema noted. Cardiac: Regular rate and rhythm without murmurs gallops or rubs. Pulm: Clear to auscultation bilaterally without wheezes, rales or rhonchi. Normal respiratory effort. 94% on room air. Abdominal: Soft, nontender, nondistended. Bowel sounds present. Neuro: A&O x3. No focal neurological deficits. Results & Data Results & Data Vital Signs (Past 12 Hours) Vital Signs Temp Pulse Pulse Resp BP Pulse Ox O2 Del Method 03/25/25 09:28 70 03/25/25 07:49 97.9 F 71 12 145/81 H 94 Room Air 03/25/25 07:38 Room Air 03/25/25 04:03 98.1 F 71 18 137/81 93 Room Air Laboratory Results Reviewed CBC with differential Reviewed CMP, chemistries Diagnostic Findings Reviewed CXR Reviewed head CT Reviewed pacemaker summary report Reviewed EKG Reviewed telemetry Echocardiogram pending Chest X-Ray 03/24/25 14:10 Clinical History: Chest pain Technique: A frontal view of the chest was obtained Comparison is made to the prior examination dated 01/04/2023 Findings: There are no confluent pulmonary infiltrates. The heart size is within normal limits. No pleural effusion or pneumothorax is seen. There is mild bilateral lung base atelectasis No fracture is noted. There is a left chest wall pacemaker device Impression: Mild bilateral lung base atelectasis Electronically signed by Tad Kate 03-24-2025 3:[address] 03/24/25 16:53 EXAM: CT head/brain wo con CLINICAL HISTORY: Dizziness TECHNIQUE: Axial non-contrast CT scan of the brain was performed from the skull base to the high parietal region. One of the following dose reduction techniques were utilized for this exam: Automated exposure control, adjustment of the mA and/or kV according to patient size, use of iterative reconstruction. COMPARISON: None FINDINGS: Brain Parenchyma: Bilateral cerebral small subcortical and deep periventricular white matter foci of low density with mild periventricular hypodensities capping both lateral ventricles. Normal attenuation of the cerebellum and brainstem. No evidence of acute infarct, hemorrhage, or mass effect. Bilateral basal ganglia, tiny calcifications. Ventricular System: Prominent ventricular systems, extra-axial CSF spaces and basal cisterns. No evidence of hydrocephalus or ventricular enlargement. Subarachnoid Spaces: Normal sulci and cisterns. No evidence of subarachnoid hemorrhage or extra-axial fluid collections. Cerebellum and Brainstem: No masses, lesions, or areas of abnormal density. Orbits: Normal appearance of the globes, optic nerves, and extraocular muscles. No evidence of orbital masses or abnormal density. Sinuses: Clear paranasal sinuses. No evidence of sinusitis or mucosal thickening. Mastoid Air Cells: Clear mastoid air cells. No evidence of mastoiditis. Skull: Normal skull morphology. Other findings: Atherosclerotic calcifications of the cavernous segments of the internal carotid arteries, with an ectatic right supraclinoid segment. Falx calcifcations. IMPRESSION: 1. No acute intracranial hemorrhage or territorial infarctions. 2. Chronic microvascular ischemic changes. 3. Age-related brain atrophic changes. 4. Early changes of a stroke may not be detected on a CT scan. If there is strong clinical suspicion of stroke, further MRI with diffusion-weighted imaging is recommended. Electronically signed by Charli Donato 03-24-2025 6:28 PM PG Care Time/CCT Total # of Minutes Spent Total Time Spent with Patient: Total time spent is greater than 50% in coordination of care (as documented) at patient's floor/unit and/or counseling patient: Coding Level of Care Code 57207 SUB INP/OBS CARE 3/50MIN Diagnoses Near syncope R55 Lightheadedness R42 Pacemaker Z95.0 Paroxysmal atrial fibrillation I48.0
--- NOTE | 2025-03-25 11:22 | Cardiology Consultation ---
Date of Consultation March 25, 2025 Assessment & Plan (1) Near syncope: (2) Cardiac pacemaker: (3) Valvular heart disease: (4) CAD (coronary artery disease): Plan 1. Lightheadedness and near syncope: This seems very unlikely to be due to a cardiac cause. I cannot exclude transient hypotension from a noncardiac cause, although his blood pressure has been stable during his hospital stay here. It is very unlikely that he has a significant arrhythmia, this pacemaker will not alter its pacing function as it approaches replacement time until he goes to FADIA settings (which it has not) which even then is a VVI mode of 65 bpm and this mode change may not even be noticeable to him. A transient lead malfunction that the pacemaker could miss (it would assume that it is pacing if it is transiently losing capture) would not only be unlikely with stable lead measurements but also would require both atrial and ventricular capture to be affected and he only infrequently paces in any case. That seems extremely unlikely. He does not have any significant arrhythmias identified by his device, although it is conceivable that he has an arrhythmia below the rate detection settings of the device which will not record arrhythmias less than 158 bpm. A transient arrhythmia below that rate could explain his symptoms and not be detected by the device. Before assuming that it is an arrhythmia or device problem causing symptoms we have to record one of his events and demonstrate one of these issues. If his symptoms do not occur during his hospitalization on telemetry we could try to do long-term monitoring at home with an event recorder. 2. Pacemaker: The pacemaker was interrogated yesterday. The lead characteristics including pacing and sensing characteristics are stable. Battery longevity is acceptable although approaching replacement time. The stored data was interrogated and reviewed. No significant arrhythmias have been identified by the device since last interrogation. 3. Valvular heart disease: He has only minor valvular heart disease, in the absence of an arrhythmia it is hard to comprehend a valve abnormality which would lead to these symptoms. 4. Coronary disease: He does have documented coronary disease, if this were an ischemic event causing hypotension without an arrhythmia it could conceivably cause his symptoms, that seems unlikely given a normal troponin. Even if he would somehow have developed left ventricular dysfunction that should only cause lightheadedness or dizziness through an arrhythmia which we should have detected on pacemaker monitoring. I would recommend looking for a neurologic cause for the symptoms or look for transient hypotension, but in addition if these continue I would make sure that we have electrocardiographic monitoring during his symptoms which should be easy enough given the frequency. You could consider keeping him off the metoprolol, his blood pressure is not low here but perhaps was during these events. History of Present Illness Reason for Consultation: Lightheadedness and dizziness Attending Physician: Mark Das MD History of Present Illness This is a 75-year-old male who had been followed at [facility] but is now followed here. He has a history of aortic insufficiency, mitral regurgitation, coronary artery disease, hyperlipidemia, hypertension and left ventricular dysfunction. He had a dual-chamber pacemaker implanted on January 05, 2014. He has had cardiac catheterization December 08, 2013 where he had no obstructive coronary artery disease. A stress test done the day before had shown a mild area of ischemia. He also has a history of valvular heart disease (mild to moderate mitral regurgitation and mild to moderate aortic regurgitation). By echocardiography on November 08, 2020 he had normal left ventricular size with an ejection fraction of 50 to 55%. An echocardiogram done August 02, 2023 shows normal left ventricular size and function with an ejection fraction of 55 to 60%. Trace aortic insufficiency and mitral regurgitation. An echocardiogram done July 31, 2024 shows normal left ventricular size with low normal left ventricular function estimated at 50 to 55%. Mild concentric left ventricular hypertrophy. Aortic sclerosis without stenosis, mild aortic insufficiency and mild mitral regurgitation. In the past he has described asthma and what he calls "vertigo", but he does not have lightheadedness, dizziness or palpitations. He presents now to the emergency room with symptoms of lightheadedness and dizziness which have been occurring for about the last week. He feels as though he is going to pass out as well as having symptoms of shortness of breath. His presenting electrocardiogram demonstrates atrial pacing appropriately with intact AV conduction. Evaluation includes general laboratory studies which are unrevealing, including a troponin which is not elevated. A chest x-ray does not show significant abnormalities. Likewise a head CT scan does not show any acute changes. He is concerned that the pacemaker is not working properly, however a pacemaker interrogation on March 24, 2025 demonstrates appropriate function with good lead measurements and acceptable battery voltage with a projected longevity of 3 months. Over the last 7 months he has been sensing appropriately about 75% of the time and atrial pacing about 25% of the time. He has had no significant atrial or ventricular arrhythmias to explain his symptoms. His activity level has not changed based on pacemaker monitoring. At the time of my evaluation he was resting in bed with his present. They describe being very busy for several weeks, but then over the past week he has been feeling fatigued more than usual. In addition he has had several episodes of lightheadedness including 1 episode of presyncope after walking down steps which is what prompted his emergency room visit as noted above. He is not aware of having palpitations at these times and does not have any other cardiovascular symptoms at these times. Allergies Allergy/AdvReac Type Severity Reaction Status Date / Time cat dander Allergy Severe Verified 11/30/24 10:00 cayenne pepper fruits Allergy Severe Throat Verified 11/30/24 10:00 swelling Iodinated Contrast Media Allergy Severe Throat Verified 11/30/24 10:00 swelling erickson Allergy Severe Throat Verified 11/30/24 10:00 swelling animal dander Allergy Intermediate Asthma Verified 11/30/24 10:00 flare lisinopril AdvReac Mild Cough Verified 11/30/24 10:00 Home Medications Medication Instructions Recorded Confirmed Type albuterol sulfate 90 mcg/actuation 2 puff inhalation QID PRN 07/02/22 03/24/25 History aerosol inhaler shortness of breath or wheezing cholecalciferol (vitamin D3) 50 50 mcg PO HS 07/02/22 03/24/25 History mcg (2,000 unit) capsule fluticasone propionate 50 1 spray intranasal QAM 07/02/22 03/24/25 History mcg/actuation nasal spray,suspension levothyroxine 125 mcg tablet 125 mcg PO QAM 07/02/22 03/24/25 History sodium chloride 0.65 % nasal spray 2 spray intranasal QID PRN Nasal 07/02/22 03/24/25 History aerosol (Saline Nasal Mist) Congestion vit C 250 mg-vit E 90 mg-zinc 40 2 tab PO QAM 07/02/22 03/24/25 History mg-copper 1 op-kttigv-wiyqel capsule (PreserVision AREDS-2) calcium carbonate (Calcium 600) 600 mg PO HS 01/08/23 03/24/25 History atorvastatin 20 mg tablet 20 mg PO HS #90 tabs 11/11/23 03/24/25 Rx metoprolol succinate 25 mg 25 mg PO QAM #90 tabs 02/25/24 03/24/25 Rx tablet,extended release 24 hr vibegron 75 mg tablet (Gemtesa) 75 mg PO DAILY #90 tabs 04/18/24 03/24/25 Rx mometasone 200 mcg/actuation HFA 0 puff inhalation BID 08/14/24 03/24/25 History aerosol inhaler (Asmanex HFA) ipratropium bromide 21 mcg (0.03 2 spray intranasal BID #30 mL 11/30/24 03/24/25 Rx %) nasal spray Patient History Medical History Basal cell carcinoma of face Osteopenia History of renal stone History of COVID-19 09/2021--mild symptoms > resolved Surgical History History of transurethral resection of prostate 01/19/2023 [facility] History of cardiac catheterization 2013 [facility] [place] - no stents S/P thyroid biopsy History of Mohs micrographic surgery for skin cancer History of surgical removal of pilonidal cyst History of prostate biopsy History of colonoscopy History of tooth extraction partial upper denture History of tonsillectomy History of bilateral cataract extraction History of permanent cardiac pacemaker placement 2013. [employer]. 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 Beliefs That Will Affect Care: None marital status: Current Living Situation: Spouse current occupational status: retired How many Children do You have: 2 Feels Safe at Home: Yes Safety Concerns: Feels Safe At This Time Childhood Exposure to Second-Hand Smoke: Yes Diet: regular caffeine: Yes Dental Care, Regularly: Yes Physical Activity Frequency: 3-4 Times per Week Seatbelt Use: always Sunscreen Use: Yes Assistive Devices: Denture - Upper Review of Systems Review of Systems: All systems reviewed & are unremarkable except as noted in HPI & below Physical Exam Physical Exam: Constitutional: Alert, cooperative and in no distress. HEENT: Unremarkable Neck: No jugular venous distention, carotid pulses are normal and equal bilaterally without bruits. Pulmonary: Clear to auscultation bilaterally. Cardiac: Regular rhythm with a grade 2/6 holosystolic murmur at the apex, no gallop or rub. Abdomen: Soft, nontender with normal bowel sounds. Extremities: No edema. Neurologic: No focal findings. Skin: No rash, ecchymoses or petechiae. Results & Data Vital Signs (Past 12 Hours) Vital Signs Temp Pulse Pulse Resp BP Pulse Ox O2 Del Method 03/25/25 09:28 70 03/25/25 07:49 36.6 C 71 12 145/81 H 94 Room Air 03/25/25 07:38 Room Air 03/25/25 04:03 36.7 C 71 18 137/81 93 Room Air Laboratory Results Cardiac Enzymes 03/24/25 03/24/25 03/25/25 Range/Units 13:52 17:45 06:47 AST 21 18 (13-39) U/L Troponin I High Sens 4.1 4.3 4.4 (0-20) pg/ml Coagulation 03/24/25 Range/Units 13:52 PT 10.6 (9.0-12.0) Seconds APTT 26 (21-31) Seconds CBC 03/24/25 03/25/25 Range/Units 13:52 06:47 WBC 8.97 7.92 (4.8-10.8) K/ul RBC 4.38 L 4.25 L (4.70-6.10) M/uL Hgb 14.5 14.0 (14.0-18.0) g/dl Hct 41.5 L 40.0 L (42.0-52.0) % Plt Count 192 206 (130-400) K/uL Neut # (Auto) 5.33 4.30 (1.40-6.50) K/uL Lymph # (Auto) 1.82 1.95 (1.20-3.40) K/uL [place] # (Auto) 1.29 H 1.21 H (0.11-0.59) K/uL Eos # (Auto) 0.40 0.38 (0.00-0.50) K/uL Baso # (Auto) 0.09 0.07 (0.00-0.20) K/uL Comprehensive Metabolic Panel 03/24/25 03/25/25 Range/Units 13:52 06:47 Sodium 141 142 (136-145) mmol/L Potassium 4.0 4.1 (3.5-5.1) mmol/L Chloride 109 H 111 H (98-107) mmol/L Carbon Dioxide 26 27 (21-32) mmol/L BUN 22 20 (6-23) mg/dl Creatinine 1.21 1.16 (0.6-1.4) mg/dl Glucose 102 H 103 H (70-99(Fasting)) mg/dl Calcium 8.9 8.5 L (8.6-10.3) mg/dl AST 21 18 (13-39) U/L ALT 18 16 (7-52) U/L Alkaline Phosphatase 63 52 (34-104) U/L Total Protein 7.0 6.3 (6.0-8.3) gm/dl Albumin 3.9 3.7 (3.4-5.0) gm/dl Intake and Output 03/24/25 03/25/25 03/25/25 22:59 06:59 14:59 Other: Weight 95.6 kg Weight Measurement Method Standing Scale Diagnostic Findings Telemetry: Mostly sinus rhythm with some atrial pacing, no significant arrhythmia. Echocardiogram: Normal left ventricular function, no significant valvular abnormalities. Similar to prior echocardiograms. PG Care Time/CCT Total # of Minutes Spent Total Time Spent with Patient: Total time spent is greater than 50% in coordination of care (as documented) at patient's floor/unit and/or counseling patient: Coding Level of Care Code 53112 INT INP/OBS CARE 3/75MIN Diagnoses Near syncope R55 Cardiac pacemaker Z95.0 Valvular heart disease I38 Coronary artery disease involving [place] coronary artery of [place] heart without angina pectoris I25.10 Associated angina: without angina Coronary Disease-Associated Artery/Lesion type: [place] artery [place] vs. transplanted heart: [place] heart CPT Codes Dual Lead Pacemaker System - 85714 ([id number]) (4) CAD (coronary artery disease) Associated angina: without angina Coronary Disease-Associated Artery/Lesion type: [place] artery [place] vs. transplanted heart: [place] heart Qualified Code(s): I25.10 - Atherosclerotic heart disease of [place] coronary artery without angina pectoris
[2025-03-25 11:28] VITALS: RESP 18
--- NOTE | 2025-03-25 12:31 | Electrocardiogram Report ---
Test Reason : Blood Pressure : */* mmHG Vent. Rate : 86 BPM Atrial Rate : 86 BPM P-R Int : 182 ms QRS Dur : 94 ms QT Int : 364 ms P-R-T Axes : 0 -16 -19 degrees QTcB Int : 435 ms Atrial-paced rhythm Possible Inferior infarct , age undetermined Abnormal ECG When compared with ECG of 06-Jan-2014 06:44, Electronic atrial pacemaker is now Present Confirmed by Christian Ramsay ([id number]) on 03/25/2025 12:31:12 PM Referred By: Confirmed By: Christian Ramsay
[2025-03-25] MEDS: ACETAMINOPHEN 325 MG TAB PO PRN (13:34)
[2025-03-25] MEDS: SODIUM CHLORIDE 0.9% 500 ML IV SCH (13:35)
--- NOTE | 2025-03-25 15:11 | XCELERA ---
[id number] \\[email or web address]\[id number]___[id number].pdf
[2025-03-26 07:18] LABS: Hematocrit (blood only) 43.6 % (42.0-52.0); Hemoglobin 14.4 g/dl (14.0-18.0); Mean Corpuscular Hemoglobin 31.8 pg (25.0-34.0); Mean Corpuscular Volume 96.2 fL (80.0-100.0); Platelet Count 218 K/uL (130-400); RDW Standard Deviation 43.8 fL (36.4-46.3); Red Blood Count 4.53 M/uL (4.70-6.10); White Blood Count 8.49 K/ul (4.8-10.8)
[2025-03-26 07:38] LABS: Anion Gap 5.0 (3-11); Blood Urea Nitrogen 22.0 mg/dl (6-23); Calcium 8.7 mg/dl (8.6-10.3); Carbon Dioxide 28.0 mmol/L (21-32); Chloride 110.0 mmol/L (98-107); Creatinine Clr Calc Pharmacy 61.6 ml/min; Glucose 100.0 mg/dl (70-99(Fasting)); Potassium 4.0 mmol/L (3.5-5.1); Sodium 143.0 mmol/L (136-145)
--- NOTE | 2025-03-26 08:00 | Hospitalist Progress Note ---
Date of Service March 26, 2025 Assessment & Plan (1) Near syncope: (2) Lightheadedness: (3) Pacemaker: (4) Paroxysmal atrial fibrillation: Plan Patient is a 75-year-old male with past medical history of paroxysmal A-fib s/p pacer December 2013, CAD, HTN, asthma, BPH. Patient presented due to numerous presyncopal episodes with falls x 6 months and was concerned about his pacer. Pacer interrogation showed a 4 beat run of V. tach however unclear as to when this occurred. Initial troponin 4.1, trended to 4.3. Diagnostic imaging negative for acute changes. He was admitted for further cardiac workup including echocardiogram and telemetry monitoring. #Presyncope - suspect 2/2 cardiac pacemaker longevity declining. Trop 4.1 ->4.3 --> 4.4. EKG showed atrial paced rhythm. CXR and head CT negative for acute changes. Electrolytes stable. VSS. - Echocardiogram completed, report pending - most recent 07/2024 showed normal systolic function, EF 50 to 55%, mild LVH, sclerotic aortic valve without significant stenosis, mild AR, mild MR - Cardiology consulted - feels this is unlikely to be pacemaker mediated. Continue to monitor on telemetry. Working up other causes - Repeat orthostatic VS were negative - TSH, mag, electrolytes WNL - Will give additional 500 cc IV fluid at 150mL/hr now - Consulted PT/OT and asked for PT to perform vestibular testing to eval for vertigo - Added B12 to AM labs 03/26 - BP 107/56. Will decrease metoprolol to 12.5mg daily. B12 pending. TSH/Mag/electrolytes stable. Orthostatic VS negative.. PT/OT pending for eval vertigo/BPPV. ?trial meclizine Will check UA/bladder scan w/ underlying BPH. ?micturition syncope? Check Lyme #Paroxysmal A fib/CAD - s/p pacer as above. Continue metoprolol and statin #Asthma - continue home inhalers #BPH - continue vibegron VTE ppx: SCDs, able to ambulate Dispo: Continue to monitor on telemetry. PT/OT evals pending Updated family members at bedside Discussed case with cardiology Consulted PT/OT Ordered IVF Admission and Anticipated Discharge Date Admission Date: March 24, 2025 Results & Data Results & Data Vital Signs (Past 12 Hours) Vital Signs Temp Pulse Pulse Resp BP Pulse Ox O2 Del Method 03/26/25 07:34 60 03/26/25 04:27 36.4 C L 70 18 107/56 L 95 Room Air 03/25/25 23:26 36.4 C L 66 18 109/61 93 Room Air 03/25/25 23:06 60 03/25/25 20:05 36.6 C 65 18 131/76 94 Room Air PG Care Time/CCT Total # of Minutes Spent Total Time Spent with Patient: Total time spent is greater than 50% in coordination of care (as documented) at patient's floor/unit and/or counseling patient: Coding Diagnoses Near syncope R55 Lightheadedness R42 Pacemaker Z95.0 Paroxysmal atrial fibrillation I48.0
[2025-03-26 08:18] VITALS: TEMP 98.1; O2SAT 92
[2025-03-26] MEDS: METOPROLOL SUCC 25MG EXT REL TAB PO SCH (09:25)
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
[2025-03-26 10:30] VITALS: BP 107/56; PULSE 69
== END 2025-03-26 11:30 | disposition home or self-care (01) | DRG 312 ==
LOC: ED 13:23 → SUATTDRO 19:51 → 2N 19:51
DX: J45.909 Unspecified asthma, uncomplicated; Z79.899 Other long term (current) drug therapy; I08.0 Rheumatic disorders of both mitral and aortic valves; I48.0 Paroxysmal atrial fibrillation; Z88.8 Allergy status to other drugs, medicaments and biological substances; R55 Syncope and collapse; I25.10 Atherosclerotic heart disease of native coronary artery without angina pectoris; R42 Dizziness and giddiness; I70.0 Atherosclerosis of aorta; I10 Essential (primary) hypertension; R29.6 Repeated falls; Z91.018 Allergy to other foods; Z79.51 Long term (current) use of inhaled steroids; Z91.048 Other nonmedicinal substance allergy status; Z82.49 Family history of ischemic heart disease and other diseases of the circulatory system; Z95.0 Presence of cardiac pacemaker; E03.9 Hypothyroidism, unspecified; N40.0 Benign prostatic hyperplasia without lower urinary tract symptoms